=== PATIENT | male | born 1945 | race Caucasian/White ===

== ENCOUNTER → 2016-10-29 | Outpatient (CLI) | payer MEDICARE, BC ==
[~2016-10-29] MED LIST: ASPIRIN CHEWABL81 MG PO; COUMADIN4 MG PO; ISOSORBIDE MONO30 MG PO; LIPITOR TAB 2020 MG PO; LISINOPRIL5 MG PO; METOPROLOL TAR100 MG PO; MULTAQ400 MG PO; NITROSTAT 0.40.4 MG SL; PLAVIX 75 MG TA75 MG PO; SYNTHROID112 MCG PO
[2016-10-29 10:36] LABS: HEMOGLOBIN 14.2 gm/dl (14.0-17.5); RED BLOOD COUNT 4.44 M/UL (4.20-5.50); WHITE BLOOD COUNT 5.2 K/UL (4.5-11.0)
[2016-10-29 10:54] LABS: BUN/CREATININE RATIO 10 (0-10)
== END ==
LOC: LAB 09:50
PROVIDERS: Family Medicine
DX: E78.5 Hyperlipidemia, unspecified (principal); E03.9 Hypothyroidism, unspecified
CPT/HCPCS: 36415; 80053; 80061; 84439; 84443; 85025

== ENCOUNTER → 2016-11-20 | Outpatient (CLI) | payer MEDICARE, BC ==
[2016-11-20 10:48] LABS: HEMOGLOBIN 14.2 gm/dl (14.0-17.5); RED BLOOD COUNT 4.35 M/UL (4.20-5.50); WHITE BLOOD COUNT 4.1 K/UL (4.5-11.0)
[2016-11-20 11:05] LABS: BUN/CREATININE RATIO 11 (0-10)
== END ==
LOC: LAB 09:46
PROVIDERS: Internal Medicine Cardiovascular Disease
DX: I25.10 Atherosclerotic heart disease of native coronary artery without angina pectoris (principal); I20.9 Angina pectoris, unspecified; R94.39 Abnormal result of other cardiovascular function study; I48.91 Unspecified atrial fibrillation; E78.5 Hyperlipidemia, unspecified; R06.02 Shortness of breath
CPT/HCPCS: 36415; 71020; 80048; 85025; 85610

== ENCOUNTER 2016-11-22 07:01 | Outpatient (CLI) | payer MEDICARE, BC ==
[~2016-11-22] VITALS: Ht 180.3 cm; Wt 82.0 kg
[2016-11-22] MEDS ORDERED: ASPIRIN CHEWABL81 MG PO (08:02)
[2016-11-22] MEDS ORDERED: LISINOPRIL5 MG PO (08:03)
[2016-11-22] MEDS ORDERED: MULTAQ400 MG PO (08:03)
[2016-11-22] MEDS ORDERED: ISOSORBIDE MONO30 MG PO (08:03)
[2016-11-22] MEDS ORDERED: LIPITOR TAB 2020 MG PO (08:03)
[2016-11-22] MEDS ORDERED: METOPROLOL TAR100 MG PO (08:04)
[2016-11-22] MEDS ORDERED: SYNTHROID112 MCG PO (08:04)
[2016-11-22] MEDS ORDERED: COUMADIN4 MG PO (08:05)
[2016-11-23] MEDS ORDERED: PLAVIX 75 MG TA75 MG PO (10:08)
[2016-11-23] MEDS ORDERED: NITROSTAT 0.40.4 MG SL (10:13)
== END 2016-11-23 12:50 | disposition home or self-care (01) ==
LOC: CATH 07:01 → PROG CARE 13:50 → CATH 11-23 12:50
DX: I25.118 Atherosclerotic heart disease of native coronary artery with other forms of angina pectoris (principal); T82.855A Stenosis of coronary artery stent, initial encounter; I48.0 Paroxysmal atrial fibrillation; I10 Essential (primary) hypertension; I49.1 Atrial premature depolarization; R94.39 Abnormal result of other cardiovascular function study; R94.31 Abnormal electrocardiogram [ECG] [EKG]; E78.5 Hyperlipidemia, unspecified; Z95.0 Presence of cardiac pacemaker; I49.5 Sick sinus syndrome; N40.0 Benign prostatic hyperplasia without lower urinary tract symptoms; Z79.02 Long term (current) use of antithrombotics/antiplatelets; Z87.891 Personal history of nicotine dependence; Z95.1 Presence of aortocoronary bypass graft; Z88.8 Allergy status to other drugs, medicaments and biological substances; Z79.82 Long term (current) use of aspirin; Z79.899 Other long term (current) drug therapy; J40 Bronchitis, not specified as acute or chronic; H26.9 Unspecified cataract; K59.00 Constipation, unspecified; R94.4 Abnormal results of kidney function studies; E03.9 Hypothyroidism, unspecified; K40.90 Unilateral inguinal hernia, without obstruction or gangrene, not specified as recurrent; M25.559 Pain in unspecified hip; M54.5 Low back pain; D75.89 Other specified diseases of blood and blood-forming organs; R25.2 Cramp and spasm; Z86.73 Personal history of transient ischemic attack (TIA), and cerebral infarction without residual deficits
CPT/HCPCS: 36415; 85347; 85610; 92920; C1725; C1769; C1887; C1894; J0153; J0461; J0583; J1644; J2250; J3010; J7030; Q0163; Q9963

== ENCOUNTER → 2017-01-09 | Outpatient (CLI) | payer MEDICARE, BC | LOC: RT 11:51 | DX: R42 Dizziness and giddiness (principal) ==

== ENCOUNTER → 2017-01-14 | Outpatient (CLI) | payer MEDICARE, BC | LOC: CT 12-28 11:30 | DX: G45.0 Vertebro-basilar artery syndrome (principal) | CPT/HCPCS: 36415; 70496; 82565; 84520; J7050; Q9963 ==

== ENCOUNTER → 2017-01-18 | Outpatient (CLI) | payer MEDICARE, BC | LOC: HEART 5 01-02 11:00 → ECHO 03-05 11:00 → HEART 5 03-05 11:00 | DX: R06.02 Shortness of breath (principal); I25.10 Atherosclerotic heart disease of native coronary artery without angina pectoris | CPT/HCPCS: 93306 ==

== ENCOUNTER → 2020-10-04 | Outpatient (CLI) | payer MEDICARE, BC | LOC: LAB 09:40 | DX: C61 Malignant neoplasm of prostate (principal) | CPT/HCPCS: 84153 ==

== ENCOUNTER → 2021-04-06 | Outpatient (CLI) | payer MEDICARE, BC | LOC: LAB 12:05 | DX: C61 Malignant neoplasm of prostate (principal) | CPT/HCPCS: 36415; 84153 ==

== ENCOUNTER → 2021-09-26 | Outpatient (CLI) | payer BC | LOC: EXRD 13:54 | DX: U07.1 COVID-19 (principal); R06.02 Shortness of breath | CPT/HCPCS: 71046 ==

== ENCOUNTER → 2021-12-21 | Outpatient (CLI) | payer MEDICARE | LOC: HEART 5 07:44 | DX: R06.02 Shortness of breath (principal); I20.9 Angina pectoris, unspecified | CPT/HCPCS: 78452; 93306; A9502; J2785 ==

== ENCOUNTER → 2022-04-23 | Outpatient (CLI) | payer MEDICARE | LOC: CT 07:44 | DX: R42 Dizziness and giddiness (principal); H91.21 Sudden idiopathic hearing loss, right ear | CPT/HCPCS: 36415; 70470; 82565; 84520; Q9967 ==